=== PATIENT | male | born 1980 | race Hispanic/Latino ===

== ENCOUNTER 2022-02-09 08:45 | Outpatient (CLI) | payer SELFPAY | END 2022-02-09 08:46 | disposition home or self-care (01) | LOC: CSHWCC 08:45 | PROVIDERS: ATTEND Nurse Practitioner Family | DX: E11.621 Type 2 diabetes mellitus with foot ulcer (principal); L97.415 Non-pressure chronic ulcer of right heel and midfoot with muscle involvement without evidence of necrosis | CPT/HCPCS: 29581; 97605; 99203; G0463 ==

== ENCOUNTER 2022-02-12 13:32 | Outpatient (CLI) | payer SELFPAY | END 2022-02-12 13:33 | disposition home or self-care (01) | LOC: CSHWCC 13:32 | PROVIDERS: ATTEND Nurse Practitioner Family | DX: E11.621 Type 2 diabetes mellitus with foot ulcer (principal); L97.415 Non-pressure chronic ulcer of right heel and midfoot with muscle involvement without evidence of necrosis; R60.0 Localized edema | CPT/HCPCS: 29581; 97605 ==

== ENCOUNTER 2022-02-16 08:11 | Outpatient (CLI) | payer SELFPAY | END 2022-02-16 08:12 | disposition home or self-care (01) | LOC: CSHWCC 08:11 | PROVIDERS: ATTEND Nurse Practitioner Family | DX: E11.621 Type 2 diabetes mellitus with foot ulcer (principal); L97.415 Non-pressure chronic ulcer of right heel and midfoot with muscle involvement without evidence of necrosis | CPT/HCPCS: 29581; 97605; 99212; G0463 ==

== ENCOUNTER 2022-02-20 09:00 | Outpatient (CLI) | payer SELFPAY | END 2022-02-20 09:01 | disposition home or self-care (01) | LOC: CSHWCC 09:00 | PROVIDERS: ATTEND Nurse Practitioner Family | DX: E11.621 Type 2 diabetes mellitus with foot ulcer (principal); L97.415 Non-pressure chronic ulcer of right heel and midfoot with muscle involvement without evidence of necrosis; R60.0 Localized edema | CPT/HCPCS: 29581; 97605 ==

== ENCOUNTER 2022-02-23 09:47 | Outpatient (CLI) | payer SELFPAY | END 2022-02-23 09:48 | disposition home or self-care (01) | LOC: CSHWCC 09:47 | PROVIDERS: ATTEND Nurse Practitioner Family | DX: E11.621 Type 2 diabetes mellitus with foot ulcer (principal); L97.415 Non-pressure chronic ulcer of right heel and midfoot with muscle involvement without evidence of necrosis; R60.0 Localized edema | CPT/HCPCS: 29581; 97605 ==

== ENCOUNTER 2022-02-27 11:43 | Outpatient (CLI) | payer SELFPAY | END 2022-02-27 11:44 | disposition home or self-care (01) | LOC: CSHWCC 11:43 | PROVIDERS: ATTEND Nurse Practitioner Family | DX: E11.621 Type 2 diabetes mellitus with foot ulcer (principal); L97.415 Non-pressure chronic ulcer of right heel and midfoot with muscle involvement without evidence of necrosis; R60.0 Localized edema | CPT/HCPCS: 29581; 97605 ==

== ENCOUNTER 2022-03-02 09:39 | Outpatient (CLI) | payer SELFPAY | END 2022-03-02 09:40 | disposition home or self-care (01) | LOC: CSHWCC 09:39 | PROVIDERS: ATTEND Nurse Practitioner Family | DX: E11.621 Type 2 diabetes mellitus with foot ulcer (principal); L97.415 Non-pressure chronic ulcer of right heel and midfoot with muscle involvement without evidence of necrosis; R60.0 Localized edema | CPT/HCPCS: 29581; 99213; G0463 ==

== ENCOUNTER 2022-03-09 11:25 | Outpatient (CLI) | payer SELFPAY | END 2022-03-09 11:26 | disposition home or self-care (01) | LOC: CSHWCC 11:25 | PROVIDERS: ATTEND Nurse Practitioner Family | DX: E11.621 Type 2 diabetes mellitus with foot ulcer (principal); L97.415 Non-pressure chronic ulcer of right heel and midfoot with muscle involvement without evidence of necrosis; R60.0 Localized edema | CPT/HCPCS: 99213; G0463 ==

== ENCOUNTER 2022-03-27 10:23 | Outpatient (CLI) | payer SELFPAY | END 2022-03-27 10:24 | disposition home or self-care (01) | LOC: CSHWCC 10:23 | PROVIDERS: ATTEND Nurse Practitioner Family | DX: E11.621 Type 2 diabetes mellitus with foot ulcer (principal); L97.415 Non-pressure chronic ulcer of right heel and midfoot with muscle involvement without evidence of necrosis; R60.0 Localized edema ==

== ENCOUNTER 2022-04-10 10:38 | Outpatient (CLI) | payer SELFPAY | END 2022-04-10 10:39 | disposition home or self-care (01) | LOC: CSHWCC 10:38 | PROVIDERS: ATTEND Nurse Practitioner Family | DX: E11.621 Type 2 diabetes mellitus with foot ulcer (principal); L97.415 Non-pressure chronic ulcer of right heel and midfoot with muscle involvement without evidence of necrosis; R60.0 Localized edema ==